=== PATIENT | male | born 1935 | race Caucasian/White ===

== ENCOUNTER → 2019-06-03 | Day surgery (SDC) | payer OTHER ==
[~2019-06-03] VITALS: Ht 175.3 cm; Wt 84.4 kg
[~2019-06-03] MED LIST: ASPIR 8181 MG PO; CARDURA2 MG PO; CO Q-10100 M1 PO; LASIX 40 MG TAB40 M2 PO; LOPRESSOR25 PO; METOPROLOL TART25 MG PO; MULTIVITAMINS1 EAC7 PO; OMEGA-31000 M1 PO; PROSCAR 5MG TABL5 MG PO; SPIRONOLACTONE25 M1 PO; TOPROL XL25 MG PO; ZOCOR20 MG PO
[2019-06-03 08:05] VITALS: BP 139/72
--- NOTE | 2019-06-04 16:06 | PATH ---
[facility] [place] [address] PATHOLOGY RPT PROCEDURE Name: LORRI MIKE Room #: REG [facility]#: [id number] Admission: 06/03/19 Date of : 35 Discharge: Report #: [id number] Path Case #: [id number] [facility] Accession Number: [id number] . 01 Material submitted: . PART A: lid - LEFT LOWER LID CARCINOMA - FS. Modifiers: left, lower PART B: lid - ADDITIONAL LEFT LOWER LID CARCINOMA - FS. Modifiers: left, lower . 02 Frozen section diagnosis: . FROZEN SECTION DIAGNOSIS (Dilma Jack MD) . A1. Left lower lid: - Focal atypical epithelium suspicious for basal cell carcinoma present at lateral margin. . B1. New lateral margin: - Negative for carcinoma. . The findings in this case were discussed with Dr. Guzman during the procedure. . . GROSS DESCRIPTION A. Received fresh and it is labeled "left lower lid" and it consists of a 0.7 x 0.3 x 0.2 cm piece of pink-pinon skin which measures 0.7 x 1.0 x 0.6 cm. Specimen orientation is provided on an underlying piece of cardboard. The specimen also contains a separate 0.7 x 0.3 x 0.2 cm strip of pink-pinon skin which Dr. Guzman has indicated represents the true lateral margin. The true lateral margin and the true medial margin are sectioned en face for frozen section in block A1. The frozen remnants are submitted in A1. The remainder of the specimen is serially sectioned parallel to the inferior/superior axis and all submitted in block A2. . B. Received fresh and it is labeled "new lateral margin" and it consists of a 0.7 x 0.3 x 0.2 cm strip of pink-pinon skin. The true new margin has been inked. The true new margin is sectioned en face for frozen section in block B1. The frozen remnant is submitted in B1. (HELENE:casey; 06/03/2019) . Frozen section performed at [facility], [address] [place] [address] , [place] [address]. LYDIA/YAIR . 02 Diagnosis: Skin, "left lower eyelid", excision: - Basal cell carcinoma, nodular type. [address] [address] PATHOLOGY RPT PROCEDURE Name: LORRI MIKE Room #: REG [facility].#: [id number] Admission: 06/03/19 Date of : 35 Discharge: Report #: [id number] Path Case #: [id number] - Margins of excision: Negative. - Actinic keratosis. . (Please see comment) . B. Skin, "additional left lower eyelid", excision: - No evidence of carcinoma. . (HELENE:casey; 06/04/2019) MBR/06/04/2019 . 02 Comment: A focal area suspicious for basal cell carcinoma was seen on the frozen section of the lateral margin of specimen "A". Permanent sections of this area show actinic keratosis. No definitive evidence of basal cell carcinoma is seen in this area. (SKM:body design checker; 06/04/2019) . 02 Electronically signed: . Jamie Jack MD, Pathologist NPI- [id number] . 03 Gross description: . PLEASE SEE FROZEN SECTION GROSS DESCRIPTION FOR A AND B. /MBR . 02 Pathologist provided ICD-10: C44.1192 . 02 CPT . 603594, 333188, 026959, 588505 Specimen Comment: A courtesy copy of this report has been sent to Specimen Comment: [phone], . Specimen Comment: Report sent to / DR HAHN Performed at: [address] [place] [address] [id number] MD Jerome Barajas MD Phone: [phone] Performed at: [address] [id number] MD Carla Guaman MD Phone: [phone] Performed at: [address] [place] [address] [id number] MD Jerome Barajas MD Phone: [phone]
--- NOTE | 2019-06-07 06:49 | O ---
[facility] [place] [address] OPERATIVE REPORT Name: LORRI MIKE Room #: REG [facility]#: [id number] Admission: 06/03/19 Attend Phys: Renny Guzman MD Discharge: Date of : 35 Report #: [id number] THIS REPORT FOR: //name// CC: Simba Guzman DATE OF SERVICE: 06/03/2019 PREOPERATIVE DIAGNOSIS: Basal cell carcinoma of left lower lid, cheek and lateral canthus. POSTOPERATIVE DIAGNOSIS: Basal cell carcinoma of left lower lid, cheek and lateral canthus. PROCEDURE: Excision of basal cell carcinoma of left lower lid, cheek and lateral canthus with musculocutaneous flap repair of defect based on the temporalis muscle. SURGEON: Renny Guzman M.D. INDUSTRIAL DI[employer]OND POLISHER: None. ANESTHESIA: MAC. COMPLICATIONS: None. INDICATIONS FOR SURGERY: This pleasant 83-year-old gentleman has a biopsy proven basal cell carcinoma in his lateral left lower lid extending into the lateral canthus and on to his cheek. This is in an area juxtaposed to a prior skin cancer that he has had repaired, and he has lateral lower lid retraction with dystopia making his anticipated reconstruction more challenging. The current procedure is undertaken in order to attempt to remove the tumor with confirmed frozen section tumor extirpation and then subsequently reconstruct that defect with a musculocutaneous flap based on the temporalis muscle in order to give adequate support to the lid laterally to reduce lid retraction, lagophthalmos, and keratopathy. Informed consent was obtained to include but not limited to potential risk for loss of vision, bleeding, infection, failure to improve the problem, the potential need for further surgery or treatment. DESCRIPTION OF PROCEDURE: The patient was taken to the operating room where 2% Xylocaine with epinephrine mixed with equal parts of 0.75% Marcaine with Wydase was administered transcutaneously and transconjunctivally to the left lower lid, the left cheek, the left lateral canthus and the left infratemporal fossa. The patient was subsequently prepped and draped in the usual sterile fashion. A [address] [address] OPERATIVE REPORT Name: CEELORRI Rajiv Room #: REG [facility]..#: [id number] Admission: 06/03/19 Attend Phys: Renny Guzman MD Discharge: Date of : 35 Report #: [id number] fine tip skin marking pen was then utilized to outline the tumor including 2-3 mm of normal appearing tissue across its margins. The incisions were then made perpendicularly across the eyelid margin with a Ellen scissor and drawn down to a point in the premalar space. The specimen was then passed off the field on a marked drawing. During my incision laterally, it appeared to me that the lateral margin might be positive, so an additional 2-3 mm of tissue were taken laterally to give a better chance of clear frozen sections with one cut. This specimen was inked and once again oriented for the pathologist. Hemostasis was re-achieved with diligent pinpoint monopolar cautery. The pathologist snap froze that tissue and found that the basal cell carcinoma was cleared medially, but surprisingly it was still positive laterally. An additional piece of tissue was then taken out through and passed the lateral canthus into the infratemporal fossa and oriented for the waiting pathologist. He snap froze this tissue as achieved hemostasis in the field and advised to me that the tumor now appeared to be completely extirpated. Because of the patient's prior reconstruction, his lid was retracted to start off with, so a temporalis musculocutaneous flap was elected to repair the defect. The relaxing incision was then made superotemporally and in the temporalis muscle split in such a manner to allow it to be in a sagittal plane. Hemostasis was then re-achieved. Most of the flap was below the area of the superficial temporal artery. The musculocutaneous flap was then rotated into position and attached with multiple layers of interrupted 5-0 Vicryl sutures deep. The eyelid margin at the lateral canthus directly was reapproximated with interrupted 5-0 Vicryl sutures. The eyelid margin on the skin was closed with interrupted 7-0 Vicryl sutures. The subcutaneous structures more superficially were closed with interrupted buried layered Vicryl sutures up to the level of the skin, at which point in time 6-0 plain gut sutures were used. The wounds were then cleaned and dressed with erythromycin ophthalmic ointment. The patient subsequently transported to the recovery area having tolerated the procedure well with no anesthetic or operative complications being noted. The patient subsequently transported to the recovery area having tolerated the procedure well with no anesthetic or operative complications being noted. <ELECTRONICALLY SIGNED> By: Renny Guzman MD 06/07/19 0649 [id number] [id number] Renny Guzman MD /nt
== END | disposition home or self-care (01) ==
LOC: OR 06:42
DX: C44.1192 Basal cell carcinoma of skin of left lower eyelid, including canthus (principal); L57.0 Actinic keratosis; I10 Essential (primary) hypertension; E78.00 Pure hypercholesterolemia, unspecified; Z98.890 Other specified postprocedural states; Z85.828 Personal history of other malignant neoplasm of skin; Z79.01 Long term (current) use of anticoagulants; Z95.2 Presence of prosthetic heart valve; Z98.41 Cataract extraction status, right eye; Z98.42 Cataract extraction status, left eye; Z96.642 Presence of left artificial hip joint; Z79.899 Other long term (current) drug therapy; Z88.0 Allergy status to penicillin; Z79.82 Long term (current) use of aspirin
CPT/HCPCS: 50010; 50101; 62110; 62850; 70005